=== PATIENT | male | born 1945 | race Two or more races ===

== ENCOUNTER 2023-11-18 19:31 | Emergency (ER) | payer MEDICARE, BC ==
[2023-11-18 19:58] LABS: RAPID STREP SCREEN Negative (Negative)
[2023-11-18 20:45] LABS: CORONAVIRUS 229E-RESP PCR NOT DETECTED; CORONAVIRUS HKU1-RESP PCR NOT DETECTED; CORONAVIRUS NL63-RESP PCR NOT DETECTED; CORONAVIRUS OC43-RESP PCR NOT DETECTED
[2023-11-18 20:47] LABS: B. PARAPERTUSSIS- RESP PCR PAN NOT DETECTED; B. PERTUSSIS- RESP PCR PANEL NOT DETECTED; C. PNEUMONIAE- RESP PCR PANEL NOT DETECTED; HUMAN METAPNEUMOVIRUS NOT DETECTED; INFLUENZA A- RESP PCR PANEL NOT DETECTED; INFLUENZA B - RESP PCR PANEL NOT DETECTED; M. PNEUMONIAE- RESP PCR PANEL NOT DETECTED; PARAINFLUENZA VIRUS 1 NOT DETECTED; PARAINFLUENZA VIRUS 2 NOT DETECTED; PARAINFLUENZA VIRUS 3 NOT DETECTED; PARAINFLUENZA VIRUS 4 NOT DETECTED; RHINOVIRUS/ENTEROVIRUS NOT DETECTED; RSV- RESP PCR PANEL NOT DETECTED; SARS-CoV-2 -RESP PCR PANEL DETECTED
--- NOTE | 2023-11-19 00:17 | ED Physician Documentation ---
History of Present Illness - Stated complaint Stated Complaint: FEVER,PX - Chief complaint Chief Complaint: Fever - History obtained from History obtained from: Patient - Additonal information Additional information: Patient comes to the emergency department chief complaint of sore throat, cough, aches, and hot and cold flashes since yesterday. They measured a temperature of up to 99.9 at home. He took 2 COVID tests at home and they were negative. The patient states he is concerned because his is immunocompromised after a kidney transplant. He is wondering if he should get Paxlovid or not. No other complaints at this time. PD PAST MEDICAL HISTORY - Past Medical History Past Medical History: Yes Cardiovascular: High cholesterol - Past Surgical History Past Surgical History: Yes - Present Medications Home Medications: Ambulatory Orders Medication Instructions Recorded Confirmed Benzonatate [Tessalon] 100 mg PO TID PRN #30 cap 11/19/23 Codeine Sulfate 30 mg PO Q4H PRN #20 tablet 11/19/23 - Allergies Allergies/Adverse Reactions: Allergies Allergy/AdvReac Type Severity Reaction Status Date / Time No Known Drug Allergies Allergy Verified 11/18/23 19:37 - Social History Does the pt smoke?: No Smoking Status: Never smoker Does the pt drink ETOH?: No Does the pt have substance abuse?: No - Immunizations Immunizations are current?: Yes PD ED PE NORMAL - Vitals Vital signs reviewed: Yes - General General: Alert and oriented X 3, No acute distress, Well developed/nourished, Other (Well-appearing, no apparent distress.) - HEENT HEENT: Atraumatic, PERRL, EOMI, Moist mucous membranes, Pharynx benign - Neck Neck: Supple, no meningeal sign - Cardiac Cardiac: RRR, No murmur - Respiratory Respiratory: No respiratory distress, Clear bilaterally - Abdomen Abdomen: Soft, Non tender, Non distended - Derm Derm: Normal color, Warm and dry, No rash - Extremities Extremities: No deformity, No edema - Neuro Neuro: Alert and oriented X 3 - Psych Psych: Normal mood, Normal affect Results - Vitals Vitals: Vital Signs - 24 hr 11/18/23 19:37 Temperature 37.7 C Heart Rate 100 Respiratory 16 Rate Blood Pressure 126/66 O2 Saturation 96 Oxygen O2 Source Room air - Labs Labs: Laboratory Tests 11/18/23 11/18/23 19:05 19:05 Nasal Adenovirus (PCR) NOT DETECTED Nasal B. parapertussis DNA (PCR) NOT DETECTED Nasal Coronavir 229E PCR NOT DETECTED Nasal Coronavir HKU1 PCR NOT DETECTED Nasal Coronavir NL63 PCR NOT DETECTED Nasal Coronavir OC43 PCR NOT DETECTED Nasal Enterovir/Rhinovir PCR NOT DETECTED Nasal Influenza B PCR NOT DETECTED Nasal Influenza A PCR NOT DETECTED Nasal Parainfluen 1 PCR NOT DETECTED Nasal Parainfluen 2 PCR NOT DETECTED Nasal Parainfluen 3 PCR NOT DETECTED Nasal Parainfluen 4 PCR NOT DETECTED Nasal RSV (PCR) NOT DETECTED Nasal B.pertussis DNA PCR NOT DETECTED Nasal C.pneumoniae (PCR) NOT DETECTED [place] Human Metapneumo PCR NOT DETECTED Nasal M.pneumoniae (PCR) NOT DETECTED Nasal SARS-CoV-2 (PCR) DETECTED A Group A Strep Rapid Negative PD Medical Decision Making - ED course Complexity details: reviewed results, re-evaluated patient, considered differential, d/w patient, d/w family ED course: Patient was well-appearing in the emergency department and I discussed with him that at this point in time, he can take Paxlovid if he wants, though it may or may not be helpful. His symptoms are fairly mild and he is stable here. Patient would like something for his cough here and for his sore throat. Departure - Departure Disposition: 01 Home, Self Care Clinical Impression: COVID-19 Condition: Stable Instructions: ED Viral Syndrome Prescriptions: Codeine Sulfate 30 mg PO Q4H PRN #20 tablet PRN Reason: Cough Benzonatate [Tessalon] 100 mg PO TID PRN #30 cap PRN Reason: Cough Comments: Your viral panel tonight is positive for COVID. There is quite a bit of this going around right now and although it makes people feel unwell, the vast majority of cases pass without incident. There is no specific treatment that consistently is helpful. Paxlovid is still available, though given the mild nature of your symptoms, probably will not be helpful. You should drink plenty of fluids and get lots of rest. The prescription for your cough and sore throat medication has been electronically transmitted to the [facility] in [place]. Please pick this up tomorrow morning and take as needed. You have been given a dose of narcotic medication tonight to help with both the cough and your sore throat and should not drive for the rest of the night.
[2023-11-19] MEDS: HYDROcod/ACETAM 5/325 MG TABLET PO STA (00:34)
[2023-11-19 00:44] VITALS: BP 133/67; O2SAT 97
== END 2023-11-19 00:40 | disposition home or self-care (01) ==
LOC: ED 19:31
DX: U07.1 COVID-19 (principal); E78.00 Pure hypercholesterolemia, unspecified
CPT/HCPCS: 87070; 87430; 87633; 99283

== ENCOUNTER 2023-11-29 17:11 | Outpatient (CLI) | payer MEDICARE, BC ==
[2023-11-29 17:35] LABS: BASOPHILS % (AUTO) 0.4 %; EOSINOPHILS # (AUTO) 0.1 10^3/uL (0.0-0.7); EOSINOPHILS % (AUTO) 0.9 %; HCT - HEMATOCRIT 48.1 % (42.0-52.0); HGB - HEMOGLOBIN 15.7 g/dL (14.0-18.0); LYMPHOCYTES # (AUTO) 1.4 10^3/uL (1.5-3.5); LYMPHOCYTES % (AUTO) 17.4 %; MEAN CORPUSCULAR HEMOGLOBIN 31.3 pg (27.0-31.0); MEAN CORPUSCULAR HGB CONC 32.6 g/dL (32.0-36.0); MEAN PLATELET VOLUME 9.1 fL (7.4-11.4); MONOCYTES # (AUTO) 0.5 10^3/uL (0.0-1.0); MONOCYTES % (AUTO) 5.9 %; NEUTROPHILS # (AUTO) 6.1 10^3/uL (1.5-6.6); PLT - PLATELET COUNT 257 10^3/uL (130-450); RED BLOOD COUNT 5.01 10^6/uL (4.70-6.10); RED CELL DISTRIBUTION WIDTH 13.3 % (12.0-15.0); WHITE BLOOD COUNT 8.1 x10^3/uL (4.8-10.8)
[2023-11-29 17:50] LABS: POTASSIUM 3.9 mmol/L (3.5-4.5)
[2023-11-29 17:51] LABS: ALBUMIN 4.2 g/dL (3.2-5.5); ALBUMIN/GLOBULIN RATIO 1.2 (1.0-2.2); BILIRUBIN,TOTAL 0.6 mg/dL (0.2-1.0); CALCIUM 9.7 mg/dL (8.5-10.3); CREATININE 0.9 mg/dL (0.6-1.3); TOTAL PROTEIN 7.8 g/dL (6.4-8.9)
== END 2023-11-29 17:12 | disposition home or self-care (01) ==
LOC: LAB 17:11
PROVIDERS: ATTEND Physician Assistant
DX: U07.1 COVID-19 (principal)
CPT/HCPCS: 36415; 80053; 85025